=== PATIENT | male | born 1995 | race Caucasian/White ===

== ENCOUNTER 2017-09-26 07:39 | Emergency (ER) | payer MEDICAID ==
[~2017-09-26] VITALS: Ht 182.9 cm; Wt 94.9 kg
[~2017-09-26 07:39] MED LIST: CEPH-367 PO; HYDR-3307 PO; IBUP-1484 PO
[2017-09-26] MEDS ORDERED: SODIUM CHLORIDE 0.9% 1,000 ML IV ONE (08:10)
[2017-09-26 08:26] LABS: HEMATOCRIT 50.6 % (39.2-51.8); HEMOGLOBIN 17.4 g/dL (13.7-18.0); WHITE BLOOD COUNT 11.3 x10^3/uL (4.5-13.2)
[2017-09-26] MEDS ORDERED: SODIUM CHLORIDE FLUSH 10ML SYR IVF ONE (08:30)
[2017-09-26] MEDS ORDERED: SODIUM CHLORIDE 0.9% 1,000ML IVBOLUS ONE (08:30)
[2017-09-26] MEDS ORDERED: ONDANSETRON 2MG/ML, 2ML IVPush ONE (08:30)
[2017-09-26 08:37] LABS: BLOOD UREA NITROGEN 16 mg/dL (7-18)
[2017-09-26 08:41] LABS: ASPARTATE AMINO TRANSFERASE 11 U/L (15-37)
[2017-09-26] MEDS ORDERED: ONDANSETRON 2MG/ML, 2ML ONE (09:14)
[2017-09-26 11:00] VITALS: BP 130/70
[2017-09-26] MEDS ORDERED: OMNIPAQUE 350 MG/ML, 100ML BOTTLE ONE (11:18)
== END 2017-09-26 12:11 | disposition home or self-care (01) ==
LOC: ED 12:08
DX: K52.9 Noninfective gastroenteritis and colitis, unspecified (principal); G43.909 Migraine, unspecified, not intractable, without status migrainosus
CPT/HCPCS: 36415; 74020; 74177; 80053; 85025; 87324; 89055; 96361; 96374; 99285; J2405; J7030; Q9967

== ENCOUNTER 2018-03-19 12:07 | Emergency (ER) | payer MEDICAID ==
[~2018-03-19] VITALS: Ht 182.9 cm; Wt 98.0 kg
[2018-03-19] MEDS ORDERED: ONDANSETRON ODT 4 MG ONE (12:31)
[2018-03-19] MEDS ORDERED: FAMOTIDINE 20 MG/2 ML ONE (12:52)
[2018-03-19] MEDS ORDERED: ONDANSETRON ODT 4 MG PO ONE (13:00)
[2018-03-19] MEDS ORDERED: FAMOTIDINE 20 MG/2 ML IVP ONE (13:00)
[2018-03-19] MEDS ORDERED: SODIUM CHLORIDE 0.9% 1,000ML IVBOLUS ONE (13:00)
[2018-03-19 13:07] LABS: RED BLOOD COUNT 6.03 x10^6/uL (4.38-5.82)
[2018-03-19 13:08] LABS: BASOPHILS # (AUTO) 0.01 x10^3/uL (0-0.1); BASOPHILS % (AUTO) 0 % (0-1); EOSINOPHILS # (AUTO) 0.17 x10^3/uL (0-0.4); EOSINOPHILS % (AUTO) 1 % (1-7); LYMPHOCYTES # (AUTO) 1.34 x10^3/uL (1-3.4); LYMPHOCYTES % (AUTO) 9 % (22-44); MD NO; MEAN CORPUSCULAR HEMOGLOBIN 31.1 pg (27.5-34.5); MEAN CORPUSCULAR HGB CONC 34.4 g/dL (33.2-36.2); MEAN CORPUSCULAR VOLUME 90.4 fL (81-97); MEAN PLATELET VOLUME 8.5 fL (7.4-10.4); MONOCYTES # (AUTO) 0.81 x10^3/uL (0.2-0.8); MONOCYTES % (AUTO) 5 % (2-9); NEUTROPHILS # (AUTO) 13.24 x10^3/uL (1.8-6.8); NEUTROPHILS % (AUTO) 85 % (42-75); PLATELET COUNT 249 x10^3/uL (130-400); RED CELL DISTRIBUTION WIDTH 13.6 % (9.4-14.8)
[2018-03-19 13:15] LABS: ALANINE AMINOTRANSFERASE 40 U/L (12-78); ALBUMIN 4.4 g/dL (3.4-5.0); ANION GAP 14 mmol/L (5-15); CALCIUM 9.3 mg/dL (8.5-10.1); CHLORIDE 109 mmol/L (98-107); CREATININE 1.07 mg/dL (0.7-1.3)
[2018-03-19 13:17] LABS: ALKALINE PHOSPHATASE 91 U/L (45-117); BILIRUBIN,TOTAL 1.1 mg/dL (0.2-1.0); TOTAL PROTEIN 8.2 g/dL (6.4-8.2)
[2018-03-19 14:14] VITALS: BP 126/74
== END 2018-03-19 14:20 | disposition home or self-care (01) ==
LOC: ED 14:14
DX: K29.00 Acute gastritis without bleeding (principal); G43.909 Migraine, unspecified, not intractable, without status migrainosus
CPT/HCPCS: 36415; 80053; 83690; 85025; 96361; 96374; 99284; J7030; Q0162; S0028